=== PATIENT | male | born 1945 | race Caucasian/White ===

== ENCOUNTER 2019-12-28 09:47 | Emergency (ER) | payer OTHER ==
[2019-12-28] MEDS ORDERED: TETANUS & DIPHTHERIA TOX,ADULT 0.5 ML VIAL ONE (10:35)
--- NOTE | 2019-12-28 10:49 | ER ---
Nurse's Notes [facility] Name: Angel Crespo Age: 74 yrs Sex: Male : 1945 Arrival Date: 12/28/2019 Time: 09:51 Bed 13 Private MD: Diagnosis: Cellulitis of buttock Presentation: 12/27 10:20 Chief complaint: Patient states: RIGHT BUTTOCK ABSCESS x10 DAYS. Coronavirus screen: bp Patient denies fever greater than 100.4F, cough, shortness of breath, or difficulty breathing. Proceed with normal triage process. Ebola Screen: No symptoms or risks identified at this time. Initial Sepsis Screen: Does the patient meet any 2 criteria? HR > 90 bpm. No. Patient's initial sepsis screen is negative. Does the patient have a suspected source of infection? No. Patient's initial sepsis screen is negative. Risk Assessment: Do you want to hurt yourself or someone else? Patient reports no desire to harm self or others. 10:20 Method Of Arrival: Ambulatory bp 10:20 Acuity: CORETTA 3 bp Triage Assessment: 10:23 General: Appears in no apparent distress. comfortable, Behavior is calm, cooperative, bp appropriate for age. Pain: Complains of pain in right gluteus antionette. EENT: No deficits noted. Neuro: No deficits noted. Cardiovascular: No deficits noted. Respiratory: No deficits noted. GI: No signs and/or symptoms were reported involving the gastrointestinal system. : No signs and/or symptoms were reported regarding the genitourinary system. Derm: Abscess located on right gluteus antionette. Musculoskeletal: No deficits noted. Historical: - Allergies: 10:23 No Known Allergies; bp - Home Meds: 10:23 metformin 1,000 mg Oral tab 1 tab 2 times per day [Active]; Pravachol 40 mg Oral tab 1 bp tab once daily [Active]; losartan-hydrochlorothiazide 50-12.5 mg oral tab 1 tab once daily [Active]; aspirin 81 mg Oral chew 1 tab once daily [Active]; - PMHx: 10:23 Diabetes - NIDDM; Hypertension; High Cholesterol; bp - Immunization history:: Adult Immunizations up to date. - Social history:: Smoking status: Patient denies any tobacco usage or history of. Screenin:24 Abuse screen: Denies threats or abuse. Denies injuries from another. Nutritional bp screening: No deficits noted. Tuberculosis screening: No symptoms or risk factors identified. Fall Risk None identified. Assessment: 10:24 General: SEE TRIAGE NOTE. bp 10:41 Reassessment: PROVIDER AT B/S FOR NEEDLE ASPIRATION OF SKIN LESION. bp 10:52 Reassessment: PT D/C HOME AMBULATORY, DX WITH CELLULITIS. bp Vital Signs: 10:20 BP 138 / 82; Pulse 100; Resp 16; Temp 98.6; Pulse Ox 99% ; Weight 106.59 kg; Height 6 bp ft. (182.88 cm); 10:20 Body Mass Index 31.87 (106.59 kg, 182.88 cm) bp ED Course: 09:51 Patient arrived in ED. ag5 10:05 Rodney Olivier, RUTH is Primary Nurse. bp 10:07 Mingo Beebe NP is PHCP. pm1 10:07 Les Black MD is Attending Physician. pm1 10:21 Triage completed. bp 10:24 Arm band placed on. bp 10:24 Patient has correct armband on for positive identification. Bed in low position. Call bp light in reach. Side rails up X2. 10:52 No provider procedures requiring assistance completed. Patient did not have IV access bp during this emergency room visit. 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 Exp: bp 03/05/2021. Lot #: [id number]. } Route: IM; Site: right deltoid; 10:41 Follow up: Response: No adverse reaction bp 10:47 Drug: Clindamycin 600 mg Route: IM; Site: left gluteus; bp 10:51 Follow up: Response: No adverse reaction bp Outcome: 10:48 Discharge ordered by . pm1 10:52 Discharged to home ambulatory. bp 10:52 Condition: stable 10:52 Discharge instructions given to patient, Instructed on discharge instructions, follow up and referral plans. medication usage, Demonstrated understanding of instructions, follow-up care, medications. 10:58 Patient left the ED. bp 11:05 Patient left the ED. pm1 Signatures: Mingo Beebe NP [employer] HELPER pm1 Rodney Olivier RN RN bp Laci Trevizo ag5 Corrections: (The following items were deleted from the chart) 10:54 10:52 Discharge instructions given to patient, Instructed on discharge instructions, bp follow up and referral plans. medication usage, Demonstrated understanding of instructions, follow-up care, medications, Prescriptions given X 2, bp
--- NOTE | 2019-12-28 10:49 | EDPHYS ---
Physician Documentation [facility] Name: Angel Crespo Age: 74 yrs Sex: Male : 1945 Arrival Date: 12/28/2019 Time: 09:51 Bed 13 Private MD: ED Physician Les Black HPI: 12/27 10:34 This 74 yrs old Male presents to ER via Ambulatory with complaints of Buttock pm1 Pain. 10:34 Onset: The symptoms/episode began/occurred 10 day(s) ago. Associated signs and pm1 symptoms: Pertinent negatives: fever, pain with bowel movement. Modifying factors: the patient symptoms are aggravated by sitting down. The patient has not experienced similar symptoms in the past. Patient reports swelling to right buttocks for the past 10 days. He has noticed some discharge present on his underwear when daily. 10:34 the patient presents with a swollen area of the right gluteus antionette. Description: pm1 raised. Possible cause(s): unknown. Historical: - Allergies: 10:23 No Known Allergies; bp - Home Meds: 10:23 metformin 1,000 mg Oral tab 1 tab 2 times per day [Active]; Pravachol 40 mg Oral tab 1 bp tab once daily [Active]; losartan-hydrochlorothiazide 50-12.5 mg oral tab 1 tab once daily [Active]; aspirin 81 mg Oral chew 1 tab once daily [Active]; - PMHx: 10:23 Diabetes - NIDDM; Hypertension; High Cholesterol; bp - Immunization history:: Adult Immunizations up to date. - Social history:: Smoking status: Patient denies any tobacco usage or history of. ROS: 10:34 Constitutional: Negative for fever, chills, and weight loss, Cardiovascular: Negative pm1 for chest pain, palpitations, and edema, Respiratory: Negative for shortness of breath, cough, wheezing, and pleuritic chest pain, Abdomen/GI: Negative for abdominal pain, nausea, vomiting, diarrhea, and constipation, Back: Negative for injury and pain. 10:34 Neuro: Negative for headache, weakness, numbness, tingling, and seizure. 10:34 Skin: Positive for abscess, of the right gluteus antionette. 10:34 All other systems are negative. Exam: 10:34 Constitutional: This is a well developed, well nourished patient who is awake, alert, pm1 and in no acute distress. Head/Face: Normocephalic, atraumatic. Chest/axilla: Normal chest wall appearance and motion. Nontender with no deformity. No lesions are appreciated. Cardiovascular: Regular rate and rhythm with a normal S1 and S2. No gallops, murmurs, or rubs. Normal PMI, no JVD. No pulse deficits. Respiratory: Lungs have equal breath sounds bilaterally, clear to auscultation and percussion. No rales, rhonchi or wheezes noted. No increased work of breathing, no retractions or nasal flaring. 10:34 Skin: Appearance: normal except for affected area, Phlegmon 2 cm x 2 cm on right with central scab. Vital Signs: 10:20 BP 138 / 82; Pulse 100; Resp 16; Temp 98.6; Pulse Ox 99% ; Weight 106.59 kg; Height 6 bp ft. (182.88 cm); 10:20 Body Mass Index 31.87 (106.59 kg, 182.88 cm) bp MDM: 10:18 Patient medically screened. pm1 10:45 ED course: Phlegmon cleaned with Betadine. Needle aspiration of phlegmon without any pm1 purulence present. Patient tolerated procedure well. No abscess present, therefore no current need for incision and drainage. Will give patient antibiotic in the ER and discharge home with antibiotics to follow up with general surgeon/PCP and educated on return precautions. 10:48 Data reviewed: vital signs. Data interpreted: Pulse oximetry: on room air is 99 %. pm1 Interpretation: normal. Counseling: I had a detailed discussion with the patient and/or guardian regarding: the historical points, exam findings, and any diagnostic results supporting the discharge/admit diagnosis, the need for outpatient follow up, for definitive care, a general surgeon, to return to the emergency department if symptoms worsen or persist or if there are any questions or concerns that arise at home. 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 Exp: bp 03/05/2021. Lot #: [id number]. } Route: IM; Site: right deltoid; 10:41 Follow up: Response: No adverse reaction bp 10:47 Drug: Clindamycin 600 mg Route: IM; Site: left gluteus; bp 10:51 Follow up: Response: No adverse reaction bp Disposition: 17:14 Co-signature as Attending Physician, Les Black MD I agree with the assessment and [facility] plan of care. Disposition: 12/28/19 10:48 Discharged to Home. Impression: Cellulitis of buttock. - Condition is Stable. - Discharge Instructions: Cellulitis, Adult. - Prescriptions for Tylenol- Codeine #3 300-30 mg Oral Tablet - take 2 tablets by ORAL route every 6 hours As needed; 20 tablet. Doxycycline Hyclate 100 mg Oral Tablet - take 1 tablet by ORAL route every 12 hours; 20 tablet. - Medication Reconciliation Form, Thank You Letter, Antibiotic Education, Prescription Opioid Use form. - Follow up: Emergency Department; When: As needed; Reason: Worsening of condition. Follow up: Private Physician; When: 2 - 3 days; Reason: Recheck today's complaints, Continuance of care, Re-evaluation by your physician. - Problem is new. - Symptoms have improved. Signatures: Les Black MD MD cha Marinas, Patrick, CORRECTIONS CADET CORRECTIONS CADET pm1 Rodney Olivier, RN RN bp Corrections: (The following items were deleted from the chart) 10:58 10:48 12/28/2019 10:48 Discharged to Home. Impression: Cellulitis of buttock. Condition bp is Stable. Forms are Medication Reconciliation Form, Thank You Letter, Antibiotic Education, Prescription Opioid Use. Follow up: Emergency Department; When: As needed; Reason: Worsening of condition. Follow up: Private Physician; When: 2 - 3 days; Reason: Recheck today's complaints, Continuance of care, Re-evaluation by your physician. Problem is new. Symptoms have improved. pm1 11:05 10:58 12/28/2019 10:48 Discharged to Home. Impression: Cellulitis of buttock. Condition pm1 is Stable. Discharge Instructions: Cellulitis, Adult. Prescriptions for Tylenol-Codeine #3 300-30 mg Oral Tablet - take 2 tablets by ORAL route every 6 hours As needed; 20 tablet, Bactrim DS 800-160 mg Oral Tablet - take 1 tablet by ORAL route every 12 hours for 10 days; 20 tablet. and Forms are Medication Reconciliation Form, Thank You Letter, Antibiotic Education, Prescription Opioid Use. Follow up: Emergency Department; When: As needed; Reason: Worsening of condition. Follow up: Private Physician; When: 2 - 3 days; Reason: Recheck today's complaints, Continuance of care, Re-evaluation by your physician. Problem is new. Symptoms have improved. bp
[2019-12-28] MEDS ORDERED: CLINDAMYCIN IV 150 MG/ML (4 mL) VIAL ONE (10:52)
[2019-12-28 11:09] VITALS: BP 138/82; TEMP 98.6; O2SAT 99
== END 2019-12-28 11:05 | disposition home or self-care (01) ==
LOC: ER 09:47
DX: L03.317 Cellulitis of buttock (principal); I10 Essential (primary) hypertension; E11.9 Type 2 diabetes mellitus without complications; E78.00 Pure hypercholesterolemia, unspecified; Z79.82 Long term (current) use of aspirin; Z23 Encounter for immunization
CPT/HCPCS: 90471; 90714; 96372; 99283; S0077